=== PATIENT | female | born 1970 | race Caucasian/White ===

== ENCOUNTER 2023-01-02 12:57 | Emergency (ER) | payer BC, SELFPAY ==
[2023-01-02 12:59] VITALS: BP 145/94; PULSE 97; RESP 18; TEMP 36.5; O2SAT 97; BMI 25.5
--- NOTE | 2023-01-02 13:15 | CRLHL7_ITS ---
For Patients: As a result of the Century Cures Act, medical imaging exams and procedure reports are released immediately into your electronic medical record. You may view this report before your referring provider. If you have questions, please contact your health care provider. Indication: Visual changes of the right eye Technique: Volumetric multidetector CT images of the head were obtained without the administration of low osmolar intravenous contrast. Comparison: None available Findings: There is no intra-axial or extra-axial fluid collection. There is no mass effect or midline shift. The ventricles and sulci are normal in size and position for age. The brain parenchyma is grossly preserved in attenuation and ji-white differentiation. The orbits and their contents are grossly within normal limits. The bony calvarium is grossly intact. The paranasal sinuses are clear. The mastoid air cells are well aerated. Impression: No acute intracranial abnormality. Negative findings were reported to Dr. Jimenez at 2:09 p.m. January 03, 2023 Please note that all CT scans at this facility use dose modulation, iterative reconstruction, and/or weight-based dosing when appropriate to reduce radiation dose to as low as reasonably achievable. Dictated by Benny Roberts MD @ 01/02/2023 2:18:56 PM (Electronically Signed)
--- NOTE | 2023-01-02 13:16 | CRLHL7_ITS ---
For Patients: As a result of the Century Cures Act, medical imaging exams and procedure reports are released immediately into your electronic medical record. You may view this report before your referring provider. If you have questions, please contact your health care provider. DATE: 01/02/2013. CLINICAL HISTORY: Visual changes. TECHNIQUE: Standard helical CT image acquisition through the head and neck following the administration of intravenous contrast was performed. Multiplanar reconstructed images performed on a separate workstation. COMPARISON: None available. FINDINGS: The great vessels are patent. The common carotid arteries are patent. The proximal ICAs are patent without signficant stenoses by NASCET criteria. The more distal cervical ICAs are patent. The origins of the vertebral arteries are patent. The cervical segments of the vertebral arteries are patent. The petrous, cavernous, and supraclinoid segments of the internal carotid arteries are patent. The anterior and middle cerebral arteries are patent. The anterior communicating artery is visualized and is within normal limits. The intracranial vertebral arteries, basilar trunk, and posterior cerebral arteries are patent. No intracranial proximal large vessel occlusion or flow-limiting luminal stenosis. No evidence of cerebral aneurysm. No findings to suggest an arterial-venous shunting lesion. IMPRESSION: 1. No intracranial proximal large vessel occlusion or flow-limiting luminal stenosis. 2. Patent cervical arterial vasculature without hemodynamically significant luminal stenosis. Please note that all CT scans at this facility use dose modulation, iterative reconstruction, and/or weight-based dosing when appropriate to reduce radiation dose to as low as reasonably achievable. Dictated by Camilo Guadalupe MD @ 01/02/2023 2:36:04 PM (Electronically Signed)
--- NOTE | 2023-01-02 13:17 | ED_ITS ---
HPI - Eye Problem General Chief complaint: Eye Problems Stated complaint: R eye numbness Time Seen by Provider: 01/02/23 13:07 History of Present Illness HPI Narrative: Patient is a 52-year-old woman who was in her usual state of health earlier today when she was reading an e-mail on her phone outside. Patient noted that she could not hold the writing on the phone steady due to visual changes. She then noticed an extreme amount of pain in the right eye. The right eye vision went black for approximately 60 seconds and then responded spontaneously with complete resolution of her symptoms. Patient found this extremely frightening which is understandable. She has had no other neurologic symptoms no numbness no tingling no weakness no fevers no chills no neck pain no recent injuries. Patient initially has some nausea but that has resolved and she is now asymptomatic. At this point her visual acuity appears normal in both eyes. Patient had a similar acute event number of years ago which led to cervical decompression. She has no headache which was the symptoms that were most troublesome the led to the decompression. Related Data Home Medications Medication Instructions Recorded Confirmed gabapentin 300 mg capsule 300 mg PO QDAY 07/09/22 01/02/23 Previous Rx's Medication Instructions Recorded meloxicam 15 mg tablet 15 mg PO QDAY #90 tabs 10/01/22 Allergies Allergy/AdvReac Type Severity Reaction Status Date / Time adhesive tape Allergy Verified 01/02/23 13:05 bee pollen Allergy Verified 01/02/23 13:05 Mercaptobenzothiazole Allergy Verified 01/02/23 13:05 Derivatives morphine Allergy Verified 01/02/23 13:05 Review of Systems Status of ROS: Reports: 10 or more systems reviewed and unremarkable except as noted in History and below PFSH [facility] Surgical History H/O tubal ligation (2003) ?Z98.51 - Tubal ligation status (ICD-10) History of bilateral carpal tunnel release ?Z98.890 - Other specified postprocedural states (ICD-10) History of cholecystectomy ?Z90.49 - Acquired absence of other specified parts of digestive tract (ICD- 10) History of mastectomy, total (06/04/19) ?Z90.10 - Acquired absence of unspecified breast and nipple (ICD-10) History of repair of anterior cruciate ligament of left knee (03/20/21) ?Z98.890 - Other specified postprocedural states (ICD-10) Hx of LASIK (2004) ?Z98.890 - Other specified postprocedural states (ICD-10) Social History Smoking Status: Never smoker Do you use any of these nicotine containing products: None Second hand tobacco smoke exposure: No How often do you have a drink containing alcohol: 2-3 times a week AUDIT-C Alcohol total score: 3 Non-prescribed substance use: denies use Are you now , , , , never or living with a partner: Social isolation score (0-1 are the most socially isolated patients): 1 Exam Narrative: Exam Narrative: EXAM GENERAL: Patient appears comfortable and well. EYES: No scleral icterus. ENT: Tympanic membranes and oropharynx normal. THYROID: no thyroid nodules or thyromegaly. LYMPH: No supraclavicular or cervical lymphadenopathy. SKIN: Visible skin seen during exam normal or with benign process only. EXT: No dependent lower extremity pedal edema. HEART: Regular rate and rhythm with no murmurs, rubs, or gallops. LUNGS: Clear to auscultation bilaterally with no crackles or wheezes. ABD: Soft, non tender, non distended. PSYCH: Good eye contact, speech is not pressured. Neurologic cranial nerves 2-12 grossly intact. Extraocular movements are intact. Visual acuity is pending. Const: Vital Signs, click to edit/add: Vital Signs - 24 hr 01/02/23 12:59 Temperature 97.7 F Pulse Rate [Right Pulse Oximeter] 97 Respiratory Rate 18 Blood Pressure [Ri ght Upper Arm] 145/94 H Pulse Oximetry 97 Oxygen Delivery Me thod Room Air Course Course Hospital Course: Uncertain what to make of her presentation. I did order a CT of the head CTA head neck CBC basic metabolic panel EKG upon my review shows normal sinus rhythm. Reevaluation(s) Reevaluation #1: CT of the head CTA head neck CBC basic metabolic panel EKG all negative upon my review. Patient remains asymptomatic. Neurology consultation requested. Consultations Consultation #1: Spoke with Neurology at [facility]. Patient agrees with workup to this point would recommend outpatient follow-up with the possible Zio patch MRI and consultation with Ophthalmology. Consult and is agreement with discharge home with outpatient follow-up. Vital Signs Vital signs: Initial Vital Signs Temperature 97.7 F 01/02/23 12:59 Temperature Source Temporal Artery Scan 01/02/23 12:59 Pulse Rate 97 01/02/23 12:59 Pulse Rhythm Regular 01/02/23 12:59 Pulse Strength 3+ Normal 01/02/23 12:59 Respiratory Rate 18 01/02/23 12:59 Blood Pressure 145/94 H 01/02/23 12:59 Blood Pressure Mean 111 01/02/23 12:59 Blood Pressure Position Supine 01/02/23 12:59 Pulse Oximetry 97 01/02/23 12:59 Oxygen Delivery Method Room Air 01/02/23 12:59 Vital Signs Temperature 97.7 F 01/02/23 12:59 Pulse Rate 97 01/02/23 12:59 Respiratory Rate 18 01/02/23 12:59 Blood Pressure 145/94 H 01/02/23 12:59 Pulse Oximetry 97 01/02/23 12:59 Oxygen Delivery Method Room Air 01/02/23 12:59 Temperature 97.7 F 01/02/23 12:59 Pulse Rate 97 01/02/23 12:59 Respiratory Rate 18 01/02/23 12:59 Blood Pressure 145/94 H 01/02/23 12:59 Pulse Oximetry 97 01/02/23 12:59 Oxygen Delivery Method Room Air 01/02/23 12:59 MDM - Eye Problem MDM Narrative Medical decision making narrative: Patient is a 52-year-old woman who presents with sudden visual changes that re solved in 60-90 seconds. Evaluation in the emergency room showed normal CT of the head normal CTA head neck EKG showed normal sinus rhythm laboratory workup was unremarkable. I did speak with Neurology and they did recommend outpatient follow-up with optometry/ophthalmology consultation consideration of Zio patch and MRI. I will arrange close outpatient follow-up. Differential diagnosis includes TIA amaurosis fugax embolic phenomenon atypical migraine Lab Data Labs: Lab Results 01/02/23 Range/Units 13:39 WBC 7.89 (4.50-11.00) K/uL RBC 3.94 L (4.00-5.20) m/uL Hgb 13.3 (12.0-16.0) gm/dL Hct 38.5 (33.0-51.0) % MCV 98 (80-100) fL MCH 34 (26-34) pg MCHC 35 (32-36) gm/dL RDW Coeff of Antonella 12.5 (11.5-15.5) % Plt Count 215 (140-440) K/uL Neut % (Auto) 76.9 H (42.0-72.0) % Lymph % (Auto) 14.1 L (20-44) % Charlton % (Auto) 7.0 (0.0-11.0) % Eos % (Auto) 1.5 (0.0-7.0) % Baso % (Auto) 0.4 (0.0-3.0) % Neut # (Auto) 6.10 (1.7-7.0) K/uL Lymph # (Auto) 1.10 (0.90-2.90) K/uL Charlton # (Auto) 0.60 (0.00-0.90) K/UL Eos # (Auto) 0.12 (0.00-0.50) K/uL Baso # (Auto) 0.03 (0.00-0.30) K/uL Sodium 136 (135-149) mmol/L Potassium 3.7 (3.6-5.1) mmol/L Chloride 107 (96-114) mmol/L Carbon Dioxide 23 (20-32) mmol/L BUN 16 (7-30) mg/dL Creatinine 0.6 (0.5-1.5) mg/dL Estimated Creat Clear 81.82 Estimated GFR 107 ml/min Glucose 93 (60-115) mg/dL Calcium 8.7 (8.4-10.6) mg/dL Discharge Plan Discharge Clinical Impression: AFX (amaurosis fugax) Patient Disposition: Home, Self-Care Condition: Improved Additional Instructions: Continue monitoring for change in symptoms Follow-up with primary care to discuss scheduling a Zio patch, MRI and possible optometry/ophthalmology consultation. Return if symptoms return Continue current medications. Activity Level: No Restrictions Discharge Diet: Regular Prescriptions: No Action gabapentin 300 mg capsule 300 mg PO QDAY meloxicam 15 mg tablet 15 mg PO QDAY Qty: 90 3RF Follow Up/Referrals: Provider,Not a Local [Primary Care Provider] - Stand Alone Forms: [place] Info Instructions
[2023-01-02 13:49] LABS: Basophils Absolute Auto 0.03 K/uL (0.00-0.30); Basophils Percent Auto 0.4 % (0.0-3.0); Eosinophils Absolute Auto 0.12 K/uL (0.00-0.50); Eosinophils Percent Auto 1.5 % (0.0-7.0); Hematocrit 38.5 % (33.0-51.0); Hemoglobin* 13.3 gm/dL (12.0-16.0); Immature Granulocytes Abs Auto 0.01 K/uL (0.00-0.30); Immature Granulocytes Pct Auto 0.1 %; Lymphocytes Percent Auto 14.1 % (20-44); Mean Corpuscular HGB Conc 35 gm/dL (32-36); Mean Corpuscular Hemoglobin 34 pg (26-34); Mean Corpuscular Volume 98 fL (80-100); Neutrophils Percent Auto 76.9 % (42.0-72.0); Platelet Count* 215 K/uL (140-440); RDW Coefficient of Variation % 12.5 % (11.5-15.5); Red Blood Count 3.94 m/uL (4.00-5.20); White Blood Count* 7.89 K/uL (4.50-11.00)
[2023-01-02 13:52] LABS: Slide Review Reflex No
[2023-01-02 14:03] LABS: Chloride* 107 mmol/L (96-114); Potassium* 3.7 mmol/L (3.6-5.1); Sodium* 136 mmol/L (135-149)
[2023-01-02 14:06] LABS: Blood Urea Nitrogen* 16 mg/dL (7-30); Calcium* 8.7 mg/dL (8.4-10.6); Carbon Dioxide* 23 mmol/L (20-32); Creatinine* 0.6 mg/dL (0.5-1.5); Est. Creatinine Clearance* 81.82; Estimated Glomerular Filt Rate 107 ml/min; Glucose* 93 mg/dL (60-115)
--- NOTE | 2023-01-02 14:47 | ED.NURSE ---
Pt resting comfortably, no complaints of pain in her right eye at this time.
== END 2023-01-02 15:19 | disposition home or self-care (01) ==
PROVIDERS: Emergency Provider Internal Medicine
DX: G45.3 Amaurosis fugax (principal)
CPT/HCPCS: 36415; 70450; 70496; 70498; 80048; 85025; 99283; 99284; Q9967

== ENCOUNTER 2023-01-21 09:50 | Outpatient (CLI) | payer BC, SELFPAY ==
--- NOTE | 2023-01-21 10:15 | CRLHL7_ITS ---
For Patients: As a result of the Century Cures Act, medical imaging exams and procedure reports are released immediately into your electronic medical record. You may view this report before your referring provider. If you have questions, please contact your health care provider. Indication: Amaurosis fugax. Technique: T1 sagittal as well as diffusion, FLAIR and T2 axial images were obtained. No IV contrast. Comparison: CT head and CTA head exams dated 01/02/2023 Findings: No mass lesion or ventricular obstruction. No evidence for recent or remote intracranial hemorrhage or infarct. No signal changes in the brain parenchyma. Both orbits are grossly negative. Normal flow voids are maintained in the intracranial vascular structures. The craniovertebral junction is unremarkable, with a patent foramen magnum. Both temporal bones are well aerated. The paranasal sinuses are essentially clear. Impression: 1. Negative MRI head. 2. No gross orbital pathology is identified. Dictated by Cj Juares MD @ 01/22/2023 12:06:56 PM (Electronically Signed)
== END 2023-01-21 09:51 | disposition home or self-care (01) ==
LOC: MRI 09:51
PROVIDERS: PCP Internal Medicine; Visit Provider Internal Medicine
DX: G45.3 Amaurosis fugax (principal)
CPT/HCPCS: 70551

== ENCOUNTER 2024-02-02 08:57 | Outpatient (CLI) | payer BC, SELFPAY ==
--- OUTSIDE RECORDS SUMMARY | 2024-02-17 11:42 | XMS_ITS | Encounter Summary ---
Author Organization [facility] Address [address] [place] [address] Care Team Providers Care Development Officer Name Role Phone Tori Hernandez MD Primary Care Provider [phone] No Ref-Primary, Physician Primary Care Provider Reason for Visit * Reason Onset Date Comments Prior Authorization 11/13/2010 [facility] Encounter Details Date Type Department Care Team (Late st Contact Info) Description 11/13/2010 Telephone [facility] [address] [place] [address] [place] [address] [place], [place] [id number] Prior Authorization ([facility]) Social History Tobacco Use Types Packs/Day Years Used Date Smoking Tobacco: Never Alcohol Use Standard Drinks/Week Comments Yes 0 (1 standard drink = 0.6 oz pur e alcohol) 1-3 per week Sex and Gender Information Value Date Recorded Sex Assigned at Female 09/25/2022 3:00 PM WOOD WINDOW AND DOOR CRAFTSMAN Gender Identity Female 09/25/2022 3:00 PM WOOD WINDOW AND DOOR CRAFTSMAN Sexual Orientation Straight 09/25/2022 3: 00 PM WOOD WINDOW AND DOOR CRAFTSMAN documented as of this encounter Miscellaneous Notes * Telephone Encounter - Marina Alexander - 11/13/2010 4:56 PM CST Prior authorization submitted to [employer] 11/13/10. Marina Alexander WINDOW AND DOOR CRAFTSMAN documented in this encounter Plan of Treatment Not on file documented as of this encounter Visit Diagnoses Not on filedocumented in this encounter Care Teams Development Officer Relationship Specialty [place] [address] [address] [id number] PCP - General 02/13/06 09/30/22 No Ref-Primary, Physician PCP - General 05/30/23 documented as of this encounter
--- OUTSIDE RECORDS SUMMARY | 2024-02-17 11:42 | XMS_ITS | Encounter Summary ---
Author Organization [facility] Address [address] [place] [address] Care Team Providers Care Offshore Diver Name Role Phone Tori Hernandez MD Primary Care Provider [phone] No Ref-Primary, Physician Primary Care Provider Encounter Details Date Type Department Care Team (Late st Contact Info) Description 03/30/2010 [facility] Abstract, Provider [facility] Social History Tobacco Use Types Packs/Day Years Used Date Smoking Tobacco: Never Alcohol Use Standard Drinks/Week Comments Yes 3 (1 standard drink = 0.6 oz pur e alcohol) 1-3 per week Sex and Gender Information Value Date Recorded Sex Assigned at Female 09/25/2022 3:00 PM TRAIN RESERVATION CLERK Gender Identity Female 09/25/2022 3:00 PM TRAIN RESERVATION CLERK Sexual Orientation Straight 09/25/2022 3: 00 PM TRAIN RESERVATION CLERK documented as of this encounter Plan of Treatment Not on file documented as of this encounter Visit Diagnoses Not on filedocumented in this encounter Care Teams Offshore Diver Relationship Specialty [place] [id number] [address] [id number] PCP - General 02/13/06 09/30/22 No Ref-Primary, Physician PCP - General 05/30/23 documented as of this encounter
--- OUTSIDE RECORDS SUMMARY | 2024-02-17 11:42 | XMS_ITS | Encounter Summary ---
Author Organization [facility] Address [address] [place] [address] Care Team Providers Care Medical Science Liaison Name Role Phone Tori Hernandez MD Primary Care Provider [phone] No Ref-Primary, Physician Primary Care Provider Reason for Visit * Reason Onset Date Comments Refill Request 06/30/2008 Encounter Details Date Type Department Care Team (Late st Contact Info) Description 06/30/2008 Refill [facility] [place] [address] [place] [address] Refill Request Social History Tobacco Use Types Packs/Day Years Used Date Smoking Tobacco: Never Alcohol Use Standard Drinks/Week Comments Yes 0 (1 standard drink = 0.6 oz pur e alcohol) 1-3 per week Sex and Gender Information Value Date Recorded Sex Assigned at Female 09/25/2022 3:00 PM MULTIPLE EFFECT EVAPORATOR OPERATOR Gender Identity Female 09/25/2022 3:00 PM MULTIPLE EFFECT EVAPORATOR OPERATOR Sexual Orientation Straight 09/25/2022 3: 00 PM MULTIPLE EFFECT EVAPORATOR OPERATOR documented as of this encounter Miscellaneous Notes * Telephone Encounter - Tori Hernandez - 06/30/2008 11:39 AM CDT Med refilled please let pt know. Tori Hernandez M.D. * Telephone Encounter - Marina Alexander - 06/30/2008 11:17 AM CDT Last Fill: 06/11/08 Last MD Visit: 06/10/08 dysmenorrhea Marina Alexander RT(R) documented in this encounter Plan of Treatment Not on file documented as of this encounter Visit Diagnoses Diagnosis Insomnia Insomnia, unspecified documented in this encounter Care Teams Medical Science Liaison Relationship Specialty [place] [address] [address] [address] PCP - General 02/13/06 09/30/22 No Ref-Primary, Physician PCP - General 05/30/23 documented as of this encounter
--- OUTSIDE RECORDS SUMMARY | 2024-02-17 11:42 | XMS_ITS | Encounter Summary ---
Author Organization [facility] Address [address] [place] [address] Care Team Providers Care Cyber Security Manager Name Role Phone Tori Hernandez MD Primary Care Provider [phone] No Ref-Primary, Physician Primary Care Provider Reason for Visit * Reason Onset Date Comments Refill Request 08/19/2008 Encounter Details Date Type Department Care Team (Late st Contact Info) Description 08/19/2008 Refill [facility] [place] [address] [place] [address] Refill Request Social History Tobacco Use Types Packs/Day Years Used Date Smoking Tobacco: Never Alcohol Use Standard Drinks/Week Comments Yes 0 (1 standard drink = 0.6 oz pur e alcohol) 1-3 per week Sex and Gender Information Value Date Recorded Sex Assigned at Female 09/25/2022 3:00 PM RAILROAD CAR CLEANER Gender Identity Female 09/25/2022 3:00 PM RAILROAD CAR CLEANER Sexual Orientation Straight 09/25/2022 3: 00 PM RAILROAD CAR CLEANER documented as of this encounter Miscellaneous Notes * Telephone Encounter - Tori Hernandez - 08/19/2008 10:52 AM CST Medication refilled please let pt know. Tori Hernandez M.D. ROAD CAR CLEANER * Telephone Encounter - Marina Alexander - 08/19/2008 8:59 AM CST Last Fill: 07/04/08 Last MD Visit: 08/11/08 preop Marina VELAZQUEZ(R) ROAD CAR CLEANER documented in this encounter Plan of Treatment Not on file documented as of this encounter Visit Diagnoses Diagnosis Other forms of migraine, without mention of intractable migraine without mention of status migrainosus documented in this encounter Care Teams Cyber Security Manager Relationship Specialty [place] [address] [address] [address] PCP - General 02/13/06 09/30/22 No Ref-Primary, Physician PCP - General 05/30/23 documented as of this encounter
--- OUTSIDE RECORDS SUMMARY | 2024-02-17 11:42 | XMS_ITS | Encounter Summary ---
Author Organization [facility] Address [address] [place] [address] Care Team Providers Care Frankfurter Inspector Name Role Phone Tori Hernandez MD Primary Care Provider [phone] No Ref-Primary, Physician Primary Care Provider Reason for Visit * Reason Onset Date Comments Refill Request 04/12/2008 Encounter Details Date Type Department Care Team (Late st Contact Info) Description 04/12/2008 Refill [facility] [place] [address] [place] [address] Refill Request Social History Tobacco Use Types Packs/Day Years Used Date Smoking Tobacco: Never Alcohol Use Standard Drinks/Week Comments Yes 0 (1 standard drink = 0.6 oz pur e alcohol) 1-3 per week Sex and Gender Information Value Date Recorded Sex Assigned at Female 09/25/2022 3:00 PM SALES CLERK Gender Identity Female 09/25/2022 3:00 PM SALES CLERK Sexual Orientation Straight 09/25/2022 3: 00 PM SALES CLERK documented as of this encounter Miscellaneous Notes * Telephone Encounter - Mariann Reyes - 04/19/2008 11:38 AM CDT Left message for pt to call back to clairfy request 04/12/08 Jann Reyes CMA documented in this encounter Plan of Treatment Not on file documented as of this encounter Visit Diagnoses Not on filedocumented in this encounter Care Teams Frankfurter Inspector Relationship Specialty [place] [address] [address] [address] PCP - General 02/13/06 09/30/22 No Ref-Primary, Physician PCP - General 05/30/23 documented as of this encounter
--- OUTSIDE RECORDS SUMMARY | 2024-02-17 11:42 | XMS_ITS | Encounter Summary ---
Author Organization [facility] Address [address] [place] [address] Care Team Providers Care Prison Teacher Name Role Phone Tori Hernandez MD Primary Care Provider [phone] No Ref-Primary, Physician Primary Care Provider Reason for Visit * Reason Onset Date Comments Refill Request 10/26/2008 Encounter Details Date Type Department Care Team (Late st Contact Info) Description 10/26/2008 Refill [facility] [place] [address] [place] [address] Refill Request Social History Tobacco Use Types Packs/Day Years Used Date Smoking Tobacco: Never Alcohol Use Standard Drinks/Week Comments Yes 0 (1 standard drink = 0.6 oz pur e alcohol) 1-3 per week Sex and Gender Information Value Date Recorded Sex Assigned at Female 09/25/2022 3:00 PM WIRE TESTER Gender Identity Female 09/25/2022 3:00 PM WIRE TESTER Sexual Orientation Straight 09/25/2022 3: 00 PM WIRE TESTER documented as of this encounter Miscellaneous Notes * Telephone Encounter - Tori Hernandez - 10/27/2008 1:01 PM CST Medication refilled please let pt know. Tori Hernandez M.D. TESTER * Telephone Encounter - Marina Alexander - 10/26/2008 3:53 PM CST Last Fill: 09/26/08 Last MD Visit: 08/11/08 preop Marina VELAZQUEZ(R) TESTER documented in this encounter Plan of Treatment Not on file documented as of this encounter Visit Diagnoses Diagnosis Depression, anxiety Dysthymic disorder documented in this encounter Care Teams Prison Teacher Relationship Specialty [place] [address] [place] [address] PCP - General 02/13/06 09/30/22 No Ref-Primary, Physician PCP - General 05/30/23 documented as of this encounter
--- OUTSIDE RECORDS SUMMARY | 2024-02-17 11:42 | XMS_ITS | Referral Summary ---
Author Organization [facility] Address [address] [place] [address] Care Team Providers Care Utility Locate Technician Name Role Phone No Ref-Primary, Physician Primary Care Provider Allergies Active Allergy Reactions Criticality Noted Date Comments Adhesive Tape Hives,Itching 11/20/2020 Bee Anaphylaxis,Swelling High 09/08/2007 Hydromorphone Anaphylaxis High 11/20/2015 Pt says she is not allergic to dilaudid, pt tolerated dilaudid and tramadol in past with breast cancer surgery recovery Morphine Anaphylaxis High 09/08/2007 And derivates Medications Medication Sig Dispensed Refills Start Date End Date Status EPINEPHrine (EPIPEN) 0.3 MG/0.3ML injectionIndications :Allergy to bee sting Inject 0.3 mLs (0.3 mg) into the muscle once as needed for anaphylaxis 3 each 1 11/02/2014 Active rizatriptan (MAXALT-FINANCIAL AUDITOR) 10 MG disintegrating tabletIndications:He adache(784.0) Take 1 tablet (10 mg) by mouth at onset of headache for migraine 30 tablet 2 02/27/2016 Active gabapentin (NEURONTIN) 300 MG capsule Take 300 mg by mouth 3 times daily 07/30/2022 Active acetaminophen (TYLENOL) 325 MG tabletIndications:S/ P total knee arthroplasty, left Take 2 tablets (650 mg) by mouth every 4 hours as needed for other (mild pain) 100 tablet 07/01/2023 Active aspirin (ASA) 325 MG EC tabletIndications:S/ P total knee arthroplasty, left Take 1 tablet (325 mg) by mouth daily 30 tablet 07/01/2023 Active senna-docusate (SENOKOT-S/PERICOLAC E) 8.6-50 MG tabletIndications:S/ P total knee arthroplasty, left Take 1-2 tablets by mouth 2 times daily Take while on oral narcotics to prevent or treat constipation. 30 tablet 07/01/2023 Active celecoxib (CELEBREX) 200 MG capsuleIndications:S /P total knee arthroplasty, left Take 1 capsule (200 mg) by mouth daily for 14 days Do not take within 6 hours of ibuprofen (MOTRIN, ADVIL) or ketorolac (TORADOL) if prescribed. 14 capsule 07/01/2023 Active meloxicam (MOBIC) 15 MG tablet Take 1 tablet (15 mg) by mouth daily Do not take while taking celebrex 07/02/2023 Active HYDROmorphone (DILAUDID) 2 MG tabletIndications:S/ P total knee arthroplasty, left Take 1-2 tablets (2-4 mg) by mouth every 3 hours as needed for severe pain 31 tablet 07/02/2023 Active hydrOXYzine (ATARAX) 25 MG tabletIndications:S/ P total knee arthroplasty, left Take 1 tablet (25 mg) by mouth every 6 hours as needed for other or itching (adjuvant pain) 30 tablet 07/02/2023 Active diazepam (VALIUM) 5 MG tabletIndications:S/ P total knee arthroplasty, left Take 1 tablet (5 mg) by mouth every 6 hours as needed for muscle spasms 10 tablet 07/02/2023 Active Active Problems Problem Noted Date Diagnosed Date S/P total knee arthroplasty, left 07/01/2023 CARDIOVASCULAR SCREENING; LDL GOAL LESS THAN 160 07/22/2010 Mastitis 12/05/2009 Mixed anxiety depressive disorder 06/10/2008 Overview: (Problem list name updated by automated process. Provider to review and confirm.) Other type of migraine 09/08/2007 Overview: Diagnosis updated by automated process. Provider to review and confirm. Calculus of kidney 09/22/2001 Headache 09/22/2000 Overview: Problem list name updated by automated process. Provider to review Resolved Problems Problem Noted Date Diagnosed Date Resolved Date Papanicolaou smear of cervix with atypical squamous cells cannot exclude high grade squamous intraepithelial lesion (ASC-H) 09/16/2007 07/11/2009 Overview: 09/08/07:Pap--HSIL. 09/29/07:colpo--Bx benign. Rec LEEP d/t pap/colpo discrepency. Letter sent per [facility]. 10/19/2007:LEEP--benign. Repap 6 months. 06/10/08:pap--ASCUS, Neg HPV. Repap 6 months 07/11/09:Closing pap tracking file, pt failed f/u recommendations. Immunizations Name Administration Dates Next Due COVID-19 MONOVALENT 12+ (Pfizer) 01/06/2021,11/22 HepB 10/16/2007 Influenza (IIV3) PF 07/18/2008,08/09/2007 Influenza Vaccine >6 months,quad, PF 08/06/2013 Mantoux Tuberculin Skin Test 09/29/2007 TDAP Vaccine (Adacel) 09/08/2007 Social History Tobacco Use Types Packs/Day Years Used Date Smoking Tobacco: Never Alcohol Use Standard Drinks/Week Comments Yes 3 (1 standard drink = 0.6 oz pur e alcohol) 1-3 per week Adolescent Education Answer Date Record ed Getting School Help Needed Not on file 06/22 Sex and Gender Information Value Date Recorded Sex Assigned at Female 09/25/2022 3:00 PM MUTUEL TELLER Gender Identity Female 09/25/2022 3:00 PM MUTUEL TELLER Sexual Orientation Straight 09/25/2022 3: 00 PM MUTUEL TELLER Last Filed Vital Signs Vital Sign Reading Time Taken Comments Blood Pressure 158/102 07/03/2023 11:31 AM CDT Pulse 102 07/03/2023 11:31 AM CDT Temperature 37.1 ??C (98.8 ??F) 07/03/2023 1 1:31 AM CDT Respiratory Rate 18 07/03/2023 12:2 0 PM CDT Oxygen Saturation 97% 07/03/2023 11: 31 AM CDT Inhaled Oxygen Concentration - - Weight 64.7 kg (142 lb 11.2 oz) 07/01/2023 9:42 AM CDT Height 154.9 cm (5' 1) 07/01/2023 9:42 AM CDT Body Mass Index 26.96 07/01/2023 9:42 AM CDT Plan of Treatment Not on file Goals Goal Patient Goal Type Associated Problems Recent Progress Patient-Stated? Author Total Joint Replacement Hip Pathway Care Plan Total Joint Replacement Hip Pathway No Natalia John Medical Devices Implanted Type Area Stopper Maker Helper Device Identifier Shelf Expiration Date Model / Serial / Lot Bone Cement Radiopaque Simplex Hv Full Dose 6194-1-001 - [id number] Implanted:Qty: 1 on 07/01/2023 by Higinio De La Rosa MD at [facility] Cement, Bone Left: Knee [employer] [id number] 02/20/2024 6194-1-001 / / [id number] Imp Baseplate Tibial Rhonda Ii Sz 2 Lt Ti [id number] - [id number] Implanted:Qty: 1 on 07/01/2023 by Higinio De La Rosa MD at [facility] Total Joint Componen t/Insert Left: Knee [employer]R [id number] 04/05/2032 [id number] / / [id number] Imp Comp Fem S&N Legion Ps Oxin Narrow Ps Sz4n Lt [id number] - [id number] Implanted:Qty: 1 on 07/01/2023 by Higinio De La Rosa MD at [facility] Total Joint Componen t/Insert Left: Knee [employer] [id number] 01/25/2033 [id number] / / [id number] Imp Comp Patella Rhonda Ii [id number] - [id number] Implanted:Qty: 1 on 07/01/2023 by Higinio De La Rosa MD at [facility] Total Joint Componen t/Insert Left: Knee [employer] [id number] 01/26/2032 [id number] / / [id number] Imp Comp Knee S&N Legion Ps Hi-Flex Xlpe Sz1-2 10mm [id number] - [id number] Implanted:Qty: 1 on 07/01/2023 by Higinio De La Rosa MD at [facility] Total Joint Componen t/Insert Left: Knee [employer] [id number] 01/28/2033 [id number] / / [id number] Procedures Procedure Name Priority Date/Time Associated Diagnosis Comments GLUCOSE BY METER Routine 07/03/2023 5:56 AM CDT MA SCREENING BILATERAL W/ ROXIE Routine 04/20/2019 12:50 PM CDT COLONOSCOPY Routine 11/23/2015 11:06 AM MUTUEL TELLER HPV SCR W REF TO ITALIA ANAL PAP OR TISSUE Routine 03/23/2014 12:00 AM CDT LIPID PROFILE Routine 03/27/2011 9:10 AM CDT CARDIOVASCULAR SCREENING; LDL GOAL LESS THAN 160 HCL HEPATITIS C VIRUS ANTIBODY Routine 09/29/2007 10:56 AM MUTUEL TELLER Abn Serum Enzy Level Nec from Last 3 Months or Most Recently Relevant to Health Maintenance Results * (ABNORMAL) Glucose by meter (07/03/2023 5:56 AM CDT) GLUCOSE BY METER POCT 123(H) 70 - 99 mg/dL 07/03/2023 6:03 AM CDT LABORATORY POC Blood, Capillary BLOOD SPECIMEN / Unknown 07/03/2023 5:56 AM CDT 07/03/2023 6:03 AM CDT Higinio De La Rosa MD [facility] POCT LABORATORY POC [facility] Lab [address] floor, [address] [place] [address], [place] [phone] * COLONOSCOPY (11/23/2015 11:06 AM MUTUEL TELLER) COLONOSCOPY Patient Name: Kirti Cohen ? Procedure Date: 11/23/2015 11:06 AM ? Date of : 1970 Admit Type: Outpatient ?Age: 44 Gender: Female ?Attending MD: Deniz Montenegro MD Procedure: ? Colonoscopy Indications: ? Chronic diarrhea Providers: ? Deniz Montenegro MD, Nelly Medina RN Referring MD: ?Anabel Dewitt MD Medicines: ? Propofol per Anesthesia Complications: ? No immediate complications. Procedure: ? Pre-Anesthesia Assessment: ? - Prior to the procedure, a History and Physical was ? performed, and patient medication allergies were ? reviewed. The patient is competent. This evaluation was ? done prior to, and discussed with anesthesia prior to ? beginning the administration of sedation. The risks and ? benefits of the procedure and the sedation options and ? risks were discussed with the patient. All questions ? were answered and informed consent was obtained. Patient ? identification and proposed procedure were verified by ? the physician and the nurse in the endoscopy suite. ? Mental Status Examination: alert and oriented. Airway ? Examination: normal oropharyngeal airway and neck ? mobility. Respiratory Examination: clear to ? auscultation. CV Examination: normal. Prophylactic ? Antibiotics: The patient does not require prophylactic ? antibiotics. Prior Anticoagulants: The patient has taken ? no previous anticoagulant or antiplatelet agents. ASA ? Grade Assessment: II - A patient with mild systemic ? disease. After reviewing the risks and benefits, the ? patient was deemed in satisfactory condition to undergo ? the procedure. The anesthesia plan was to use moderate ? sedation / analgesia (conscious sedation). Immediately ? prior to administration of medications, the patient was ? re-assessed for adequacy to receive sedatives. The heart ? rate, respiratory rate, oxygen saturations, blood ? pressure, adequacy of pulmonary ventilation, and ? response to care were monitored throughout the ? procedure. The physical status of the patient was ? re-assessed after the procedure. ? After obtaining informed consent, the colonoscope was ? passed under direct vision. Throughout the procedure, ? the patient's blood pressure, pulse, and oxygen ? saturations were monitored continuously. The Colonoscope ? was introduced through the anus and advanced to the ? cecum, identified by appendiceal orifice and ileocecal ? valve. The patient tolerated the procedure well. The ? colonoscopy was somewhat difficult due to significant ? looping and a tortuous colon. Successful completion of ? the procedure was aided by using manual pressure. ? Findings: ? The digital rectal exam was normal. ? The colon (entire examined portion) was significantly redundant. ? The exam was otherwise without abnormality. ? Biopsies were taken with a cold forceps from the entire colon for ? evaluation of microscopic colitis. ? Impression: ?- Redundant colon. ? - The examination was otherwise normal. Recommendation: ?- Await pathology results. ? - Return to primary care physician as previously ? scheduled. ? Signed electronically by Deniz Montenegro M.D. Deniz Montenegro MD 11/23/2015 11:34 AM Number of Addenda: 0 Note Initiated On: 11/23/2015 11:06 AM RADIOLOGY RESULTS 11/23/2015 11:0 6 AM MUTUEL TELLER Anabel Jo PROCEDURES RADIOLOGY RESULTS * HPV screen with reflex to genotype (03/23/2014 12:00 AM CDT) Copath Report Patient Name: KIRTI COHEN MR#: [id number] Specimen #: [id number] Collected: 03/23/2014 00:00 Received: 03/31/2014 11:52 Reported: 04/02/2014 12:17 Ordering Phy(s): HALLEY LORENZO TEST(S) REQUESTED: Human Papillomavirus Screen Analysis SPECIMEN DESCRIPTION: Cervical Cells METHODOLOGY: ??Total cellular DNA was extracted from the above specimen and up to 1 ug subjected to DNA amplification with a series of oligonucleotide primers directed to the L1 region of the human papillomavirus genome. ??The resulting PCR fragments were then by capillary electrophoresis using a [employer] with [employer] software. ??The PCR products from samples positive for HPV DNA were then digested with a series of restriction endonuclease enzymes. ??The resulting pattern of bands corresponding to the digested DNA products were interpreted according to the corresponding HPV DNA controls. Amplification of a segment of the beta globin gene serves as an internal control of DNA amplification. RESULTS (L1 region): ? NEGATIVE FOR HPV DNA Final Diagnosis: This patient's sample is negative for HPV DNA. Diagnosis Comment: This patient's sample is negative for HPV DNA.These results do not rule out the presence of an occult HPV infection which is not detected due to either sampling error, or sample procurement. This test was developed and its performance determined by the [facility]. It has not been cleared or approved by the U.S. Food and Drug Administration. ??The FDA has determined that such clearance or approval is not necessary. ??Pursuant to the requirements of CLIA'88, this laboratory has established and verified the test's accuracy and precision. ??This test is used for clinical purposes. Electronically Signed Out By: KASSIE Packing House Supervisor CPT Codes: A: 31775- [facility]SC TESTING LAB LOCATION: [place] [id number] [facility] [address] [place] [id number] COLLECTION SITE: Client: [facility] Location: ??[facility] (K) COPATH 03/23/2014 03/31/2014 11: 52 AM CDT Halley Lorenzo MD LAB - GENOMIC S COPATH * Lipid Profile (03/27/2011 9:10 AM CDT) Cholesterol 152 0 - 200 mg/dL [facility] Comment: LDL Cholesterol is the primary guide to therapy. The NCEP recommends further evaluation of: patients with cholesterol greater than 200 mg/dL if additional risk factors are present, cholesterol greater than 240 mg/dL, triglycerides greater than 150 mg/dL, or HDL less than 40 mg/dL. Triglycerides 80 0 - 150 mg/dL [facility] HDL Cholesterol 61 50 - 110 mg/dL [facility] LDL Cholesterol Calculated 75 0 - 129 mg/dL [facility] Comment: LDL Cholesterol is the primary guide to therapy: LDL-cholesterol goal in high risk patients is <100 mg/dL and in very high risk patients is <70 mg/dL. VLDL-Cholesterol 16 0 - 30 mg/dL [facility] Cholesterol/HDL Ratio 2.0 0.0 - 5.0 [facility] Blood specimen (specimen) 03/27/2011 9:10 AM CDT 03/27/2011 9:15 AM CDT Tori Hernandez MD LAB - BLOOD ORDERABL ES [facility] * HCV ANTIBODY (09/29/2007 10:56 AM MUTUEL TELLER) Hepatitis C Antibody Negative [facility] 09/29/2007 10:5 6 AM MUTUEL TELLER 09/29/2007 10:58 AM MUTUEL TELLER Tori Hernandez MD LABORATORY [facility] from Last 3 Months or Most Recently Relevant to Health Maintenance Additional Health Concerns Active Problems Noted Date Diagnosed Date Total Joint Replacement Hip Pathway 05/29/2023 Advance Directives For more information, please contact: [phone] * Full Code (Latest Code Status on File) Date Activated Date Inactivated Comments 07/01/2023 1:00 PM 07/03/2023 2:18 PM All basic and advanced life-sustaining interventions are performed as appropriate Question Answer Comments Code status determined by: Discussion with patie nt/ legal decision maker Care Teams Utility Locate Technician Relationship Specialty Start Date End Date No Ref-Primary, Physician PCP - General 05/30/23
--- OUTSIDE RECORDS SUMMARY | 2024-02-17 11:42 | XMS_ITS | Encounter Summary ---
Author Organization [facility] Address [address] [place] [id number] Care Team Providers Care Web Offset Press Feeder Name Role Phone No Ref-Primary, Physician Primary Care Provider Encounter Details Date Type Department Care Team (Late st Contact Info) Description 06/02/2023 MyC Medical Advice Initial Department Ariana Lee Social History Tobacco Use Types Packs/Day Years Used Date Smoking Tobacco: Never Alcohol Use Standard Drinks/Week Comments Yes 3 (1 standard drink = 0.6 oz pur e alcohol) 1-3 per week Sex and Gender Information Value Date Recorded Sex Assigned at Female 09/25/2022 3:00 PM LEAD ENGINEER Gender Identity Female 09/25/2022 3:00 PM LEAD ENGINEER Sexual Orientation Straight 09/25/2022 3: 00 PM LEAD ENGINEER documented as of this encounter Plan of Treatment Not on file documented as of this encounter Goals Goal Patient Goal Type Associated Problems Recent Progress Patient-Stated? Author Total Joint Replacement Hip Pathway Care Plan Total Joint Replacement Hip Pathway No Natalia John documented as of this encounter Visit Diagnoses Not on filedocumented in this encounter Additional Health Concerns Active Problems Noted Date Diagnosed Date Total Joint Replacement Hip Pathway 05/29/2023 documented as of this encounter Care Teams Web Offset Press Feeder Relationship Specialty Start Date End Date No Ref-Primary, Physician PCP - General 05/30/23 documented as of this encounter
--- OUTSIDE RECORDS SUMMARY | 2024-02-17 11:42 | XMS_ITS | Encounter Summary ---
Author Organization [facility] Address [address] [place] [address] Care Team Providers Care Production Supervisor Off Shift Name Role Phone Tori Hernandez MD Primary Care Provider [phone] No Ref-Primary, Physician Primary Care Provider Reason for Visit * Reason Onset Date Comments Refill Request 06/13/2008 Encounter Details Date Type Department Care Team (Late st Contact Info) Description 06/13/2008 Refill [facility] [place] [address] [place] [address] Refill Request Social History Tobacco Use Types Packs/Day Years Used Date Smoking Tobacco: Never Alcohol Use Standard Drinks/Week Comments Yes 0 (1 standard drink = 0.6 oz pur e alcohol) 1-3 per week Sex and Gender Information Value Date Recorded Sex Assigned at Female 09/25/2022 3:00 PM SHAREPOINT WEB DEVELOPER Gender Identity Female 09/25/2022 3:00 PM SHAREPOINT WEB DEVELOPER Sexual Orientation Straight 09/25/2022 3: 00 PM SHAREPOINT WEB DEVELOPER documented as of this encounter Miscellaneous Notes * Telephone Encounter - Tori Hernandez - 06/13/2008 9:20 AM CDT Medication refilled. Tori Hernandez M.D. * Telephone Encounter - Marina Alexander - 06/13/2008 9:18 AM CDT Last Fill: 03/24/08 Last MD Visit: 06/10/08 dysmenorrhea Marina VELAZQUEZ(R) documented in this encounter Plan of Treatment Not on file documented as of this encounter Visit Diagnoses Diagnosis Insomnia Insomnia, unspecified documented in this encounter Care Teams Production Supervisor Off Shift Relationship Specialty [place] [address] [address] [id number] PCP - General 02/13/06 09/30/22 No Ref-Primary, Physician PCP - General 05/30/23 documented as of this encounter
--- OUTSIDE RECORDS SUMMARY | 2024-02-17 11:42 | XMS_ITS | Clinical Summary ---
Author Organization [facility] Address [address] [place] [id number] Care Team Providers Care Internet Specialist Name Role Phone No Ref-Primary, Physician Primary [...] anaphylaxis 3 each 1 11/02/2014 Active rizatriptan ([employer]) 10 MG disintegrating tabletIndications:He adache(784.0) Take 1 [...] Skin Test 09/29/2007 TDAP Vaccine (Adacel) 09/08/2007 Family History Medical History Relation Comments C.A.D. Father stent Hypertension Father Lipids Father Diabetes Maternal Grandfather Gastrointestinal Disease Maternal Grandmother GB removed Alcohol/Drug Mother Depression Mother Diabetes Mother Gastrointestinal Disease Mother GB naomie reena Obesity Mother Thyroid Disease Mother Cardiovascular Paternal Grandfather Asthma No family hx of Breast Cancer No family hx of Cancer - colorectal No family hx of Cerebrovascular Disease No family hx of Prostate Cancer No family hx of Relation Status Comments Brother Alive Daughter Alive Father Alive Maternal Grandfather Alive Maternal Grandmother Alive Mother Alive Paternal Grandfather Paternal Grandmother Son 1 Alive Son 2 Alive Social History Tobacco Use Types Packs/Day Years Used Date Smoking Tobacco: Never Alcohol Use Standard Drinks/Week Comments Yes 3 (1 standard drink = 0.6 oz pur e alcohol) 1-3 per week Adolescent Education Answer Date Record ed Getting School Help Needed Not on file 06/22 Sex and Gender Information Value Date Recorded Sex Assigned at Female 09/25/2022 3:00 PM CLIP COATER Gender Identity Female 09/25/2022 3:00 PM CLIP COATER Sexual Orientation Straight 09/25/2022 3: 00 PM CLIP COATER Last Filed Vital Signs Vital Sign Reading [...] 07/01/2023 9:42 AM CDT Plan of Treatment Health Maintenance Due Date Last Done Comments ADVANCE CARE PLANNING 1970 ANNUAL REVIEW OF HM ORDERS 1969 CT COLONOGRAPHY 1969 FIT 1969 FLEX SIG 1969 URINE DRUG SCREEN 1969 sDNA (Cologuard) 1969 HIV SCREENING 1984 HEPATITIS B IMMUNIZATION (2 of 3 - 19+ 3-dose series) 11/13/2007 10/16/2007, 10/16/2007, 10/16/2007 LIPID 03/27/2012 03/27/2011, 09/08/2007 PAP 03/23/2017 03/23/2014, 10/2013, 03/27/2011, Additional history exists MAMMO SCREENING 04/20/2020 04/20/2019, 03/24, 04/09/2018, Additional history exists ZOSTER IMMUNIZATION (2 of 2) 03/06/2022 01/09/2022 YEARLY PREVENTIVE VISIT 01/09/2023 01/10/20, 03/23/2014, 03/27/2011, Additional history exists COVID-19 Vaccine ( season) 2023 01/09/2022, 01/06/2021, 12/20/2020 PHQ-2 (once per calendar year) 2023 INFLUENZA VACCINE (Season Ended) 2024 07/28/2019, 07/28/2019, 07/21/2018, Additional history exists COLONOSCOPY 11/22/2025 11/23/2015, 11/23/2015 COLORECTAL CANCER SCREENING 11/22/2025 GLUCOSE 07/03/2026 07/03/2023, 06/22, 07/01/2023, Additional history exists DTAP/TDAP/TD IMMUNIZATION (3 - Td or Tdap) 01/10/2032 01/09/2022, 09/08/2007 HEPATITIS C SCREENING Completed 09/29/2007 MIGRAINE ACTION PLAN Completed 06/04/2012 HPV IMMUNIZATION Aged Out No longer e ligible based on patient's age to complete this topic IPV IMMUNIZATION Aged Out No longer e ligible based on patient's age to complete this topic MENINGITIS IMMUNIZATION Aged Out No l onger eligible based on patient's age to complete this topic Pneumococcal Vaccine: Pediatrics (0 to 5 Years) and At-Risk Patients (6 to 64 Years) Aged Out No longer eligible based on patient's age to complete this topic RSV MONOCLONAL ANTIBODY Aged Out No l onger eligible based on patient's age to complete this topic Goals Goal Patient Goal Type Associated Problems Recent Progress Patient-Stated? Author Total Joint Replacement Hip Pathway Care Plan Total Joint Replacement Hip Pathway No [employer] Implanted Type Area Bouffant Curtain Machine Tender Device Identifier Shelf Expiration Date Model / Serial / Lot Bone Cement Radiopaque Simplex Hv Full Dose 6194-1-001 - [id number] Implanted:Qty: 1 on 07/01/2023 by Higinio De La Rosa MD at [facility] Cement, Bone Left: Knee [employer] [id number] 02/20/2024 6194-1-001 / / [id number] Imp Baseplate Tibial Rhonda Ii Sz 2 Lt Ti [id number] - [id number] Implanted:Qty: 1 on 07/01/2023 by Higinio De La Rosa MD at [facility] Total Joint Componen t/Insert Left: Knee [employer]R [id number] 04/05/2032 [id number] / / [id number] Imp Comp Fem S&N Legion Ps Oxin Narrow Ps Sz4n Lt [id number] - [id number] Implanted:Qty: 1 on 07/01/2023 by Higinio De La Rosa MD at [facility] Total Joint Componen t/Insert Left: Knee [employer] [id number] 01/25/2033 [id number] / / [id number] Imp Comp Patella Rhonda Ii [id number] - [id number] Implanted:Qty: 1 on 07/01/2023 by Higinio De La Rosa MD at [facility] Total Joint Componen t/Insert Left: Knee [employer] [id number] 01/26/2032 [id number] / / [id number] Imp Comp Knee S&N Legion Ps Hi-Flex Xlpe Sz1-2 10mm [id number] - [id number] Implanted:Qty: 1 on 07/01/2023 by Higinio De La Rosa MD at [facility] Total Joint Componen t/Insert Left: Knee [employer] [id number] 01/28/2033 [id number] / / [id number] Procedures Procedure Name Priority Date/Time Associated Diagnosis Comments GLUCOSE BY METER Routine 07/03/2023 5:56 AM CDT MA SCREENING BILATERAL W/ ROXIE Routine 04/20/2019 12:50 PM CDT COLONOSCOPY Routine 11/23/2015 11:06 AM CLIP COATER HPV SCR W REF TO ITALIA ANAL PAP OR TISSUE Routine 03/23/2014 12:00 AM CDT LIPID PROFILE Routine 03/27/2011 9:10 AM CDT CARDIOVASCULAR SCREENING; LDL GOAL LESS THAN 160 HCL HEPATITIS C VIRUS ANTIBODY Routine 09/29/2007 10:56 AM CLIP COATER Abn Serum Enzy Level Nec from Last 3 Months or Most Recently Relevant to Health Maintenance Results * (ABNORMAL) Glucose by meter (07/03/2023 5:56 AM CDT) GLUCOSE BY METER POCT 123(H) 70 - 99 mg/dL 07/03/2023 6:03 AM CDT [facility] LABORATORY POC Blood, Capillary BLOOD SPECIMEN / Unknown 07/03/2023 5:56 AM CDT 07/03/2023 6:03 AM CDT Higinio De La Rosa MD LAB - [facility] POCT LABORATORY POC [facility] [address], [address] [place] [address], [place] [phone] * COLONOSCOPY (11/23/2015 11:06 AM CLIP COATER) COLONOSCOPY Patient Name: Kirti Cohen ? Procedure [...] AM RADIOLOGY RESULTS 11/23/2015 11:0 6 AM CLIP COATER Anabel Jo PROCEDURES RADIOLOGY RESULTS * HPV screen with reflex to genotype (03/23/2014 12:00 AM CDT) Copath Report Patient Name: KIRTI COHEN MR#: [id number] Specimen #: [id number] Collected: 03/23/2014 00:00 Received: 03/31/2014 11:52 Reported: [...] then by capillary electrophoresis using a Qiagen QIAAldagenel with BioCalculator software. ??The PCR products from samples positive [...] developed and its performance determined by the [facility], [facility]. It has not been cleared or approved by the U.S. Food and Drug Administration. ??The FDA has determined that such clearance or approval is not necessary. ??Pursuant to the requirements of CLIA'88, this laboratory has established and verified the test's accuracy and precision. ??This test is used for clinical purposes. Electronically Signed Out By: KASSIE Sizing Machine And Drier Operator CPT Codes: A: 70952- [facility] TESTING LAB LOCATION: [address] [id number] COLLECTION SITE: Client: ?? [facility] Location: ??[facility] () COPATH 03/23/2014 03/31/2014 11: 52 AM CDT Halley Lorenzo MD LAB - GENOMIC S COPATH * Lipid Profile (03/27/2011 9:10 AM CDT) Cholesterol 152 0 - 200 mg/dL [facility] Comment: LDL Cholesterol is the primary guide to therapy. The NCEP recommends further evaluation of: patients with cholesterol greater than 200 mg/dL if additional risk factors are present, cholesterol greater than 240 mg/dL, triglycerides greater than 150 mg/dL, or HDL less than 40 mg/dL. Triglycerides 80 0 - 150 mg/dL [facility] HDL Cholesterol 61 50 - 110 mg/dL [facility] LDL Cholesterol Calculated 75 0 - 129 mg/dL [facility] Comment: LDL Cholesterol is the primary guide to therapy: LDL-cholesterol goal in high risk patients is <100 mg/dL and in very high risk patients is <70 mg/dL. VLDL-Cholesterol 16 0 - 30 mg/dL [facility] Cholesterol/HDL Ratio 2.0 0.0 - 5.0 [facility] Blood specimen (specimen) 03/27/2011 9:10 AM CDT 03/27/2011 9:15 AM CDT Tori Hernandez MD LAB - BLOOD ORDERABL ES [facility] * HCV ANTIBODY (09/29/2007 10:56 AM CLIP COATER) Hepatitis C Antibody Negative NEG [facility] 09/29/2007 10:5 6 AM CLIP COATER 09/29/2007 10:58 AM CLIP COATER Tori Hernandez MD LABORATORY [facility] from Last 3 Months or Most Recently Relevant to Health Maintenance Additional Health Concerns Active Problems Noted Date Diagnosed Date Total Joint Replacement Hip Pathway 05/29/2023 Advance Directives For more information, please contact: [phone] * Full Code (Latest Code Status on File) Date Activated Date Inactivated Comments 07/01/2023 1:00 PM 07/03/2023 2:18 PM All basic and advanced life-sustaining interventions are performed as appropriate Question Answer Comments Code status determined by: Discussion with patie nt/ legal decision maker Care Teams Internet Specialist Relationship Specialty Start Date End Date No Ref-Primary, Physician PCP - General 05/30/23
== END 2024-02-02 08:58 | disposition home or self-care (01) ==
LOC: NFLDREF 02-17 11:41
PROVIDERS: PCP Internal Medicine; Referring Provider Internal Medicine; Visit Provider Internal Medicine
DX: Z13.228 Encounter for screening for other metabolic disorders (principal); Z13.220 Encounter for screening for lipoid disorders
CPT/HCPCS: 80053; 80061

== ENCOUNTER 2025-05-16 14:59 | Outpatient (CLI) | payer BC, SELFPAY | END 2025-05-16 15:00 | disposition home or self-care (01) | LOC: LKVREF 15:04 | PROVIDERS: PCP Internal Medicine; Visit Provider Family Medicine | DX: N30.00 Acute cystitis without hematuria (principal); B96.20 Unspecified Escherichia coli [E. coli] as the cause of diseases classified elsewhere | CPT/HCPCS: 87086 ==

== ENCOUNTER 2025-05-30 10:34 | Outpatient (CLI) | payer BC, SELFPAY | END 2025-05-30 10:35 | disposition home or self-care (01) | LOC: NFLDREF 06-02 16:59 | PROVIDERS: PCP Internal Medicine; Referring Provider Internal Medicine; Visit Provider Family Medicine | DX: N20.0 Calculus of kidney (principal) | CPT/HCPCS: 87086; 87186 ==

== ENCOUNTER 2025-07-08 08:44 | Outpatient (CLI) | payer BC, SELFPAY | END 2025-07-08 08:45 | disposition home or self-care (01) | LOC: NFLDREF 07-09 17:16 | PROVIDERS: PCP Internal Medicine; Referring Provider Internal Medicine; Visit Provider Internal Medicine | DX: Z13.6 Encounter for screening for cardiovascular disorders (principal); Z13.9 Encounter for screening, unspecified | CPT/HCPCS: 80053; 80061 ==

== ENCOUNTER 2025-07-20 15:39 | Outpatient (CLI) | payer BC, SELFPAY | END 2025-07-20 15:40 | disposition home or self-care (01) | LOC: NFLDREF 15:40 | PROVIDERS: PCP Internal Medicine; Visit Provider Internal Medicine | DX: N20.0 Calculus of kidney (principal) | CPT/HCPCS: 83001; 83002 ==